=== PATIENT | female | born 1990 | race Caucasian/White ===

== ENCOUNTER 2018-11-30 16:11 | Emergency (ER) | payer OTHER ==
[2018-11-30 16:31] VITALS: BP 111/62; PULSE 65; TEMP 98.4; BMI 32.4
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
[2018-11-30] MEDS ORDERED: IBUPROFEN 400 MG TABLET (FP) PO ONE ×2 (16:47→16:48)
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
== END 2018-11-30 17:32 | disposition home or self-care (01) ==
LOC: JERFT 16:11
DX: S13.4XXA Sprain of ligaments of cervical spine, initial encounter (principal); V43.52XA Car driver injured in collision with other type car in traffic accident, initial encounter; Y92.488 Other paved roadways as the place of occurrence of the external cause; Y93.89 Activity, other specified; Y99.8 Other external cause status
CPT/HCPCS: 72050-TC-FY; 99282-25